=== PATIENT | male | born 1950 ===

== ENCOUNTER 2020-12-08 04:06 | Inpatient (IN) | payer OTHER ==
[~2020-12-08] VITALS: Ht 190.5 cm; Wt 119.1 kg
[2020-12-08] MEDS ORDERED: IOHEXOL 350 MG/ML 100ML IJ ONE (04:47)
[2020-12-08 05:13] LABS: Basophils # (auto) 0.1 10 ^3/uL (0-0.2); Eosinophils # (auto) 0.3 10 ^3/uL (0-0.8); Eosinophils % (auto) 2.8 % (0.0-7.0); Hematocrit 41.9 % (41.0-53.0); Lymphocytes # (auto) 2.6 10 ^3/uL (0.4-5.4); Lymphocytes % (auto) 23.5 % (10.0-50.0); Mean Corpuscular Hemoglobin 32.5 pg (28.0-32.0); Mean Corpuscular Hgb Conc. 33.5 g/dL (32.0-36.0); Mean Corpuscular Volume 97.1 fL (80.0-100.0); Monocytes # (auto) 0.8 10 ^3/uL (0-1.3); Neutrophils # (auto) 7.3 10 ^3/uL (1.6-8.6); Neutrophils % (auto) 65.7 % (37.0-80.0); Red Blood Cells 4.31 10^6/uL (4.5-5.90); Red Cell Distribution Width 13.4 % (11.8-14.3); White Blood Cell 11.1 10^3/uL (4.4-10.8)
[2020-12-08] MEDS ORDERED: HYDROmorphone HCL 2 MG/ML VL IV ONE (05:15)
[2020-12-08 05:38] LABS: Albumin 3.1 g/dL (3.4-5.0); Anion Gap 4 (5-15); Blood Urea Nitrogen 16 mg/dL (7-18); Calcium 8.2 mg/dL (8.5-10.1); Carbon Dioxide 27 mmol/L (21-32); Chloride 112 mmol/L (98-107); Glucose 124 mg/dL (74-106); Potassium 3.9 mmol/L (3.5-5.1); Sodium 143 mmol/L (136-145)
[2020-12-08 05:49] LABS: Alanine Aminotransferase 21 U/L (16-61); Alkaline Phosphatase 76 U/L (45-117); Aspartate Aminotransferase 16 U/L (15-37); BUN/Creatinine Ratio 22.2; Bilirubin, Total 0.5 mg/dL (0.2-1.0); GFR African American 138 mL/min; GFR Non-African American 114 mL/min; Total Protein 6.9 g/dL (6.4-8.2)
[2020-12-08] MEDS ORDERED: NITROGLYCERIN 0.4 MG SL TAB SL PRN ×2 (09:15→10:00)
[2020-12-08] MEDS ORDERED: MORPHINE SULFATE INJECTION 2 MG/ML SYRG IV PRN ×4 (09:15→11:45)
[2020-12-08] MEDS ORDERED: FUROSEMIDE 40 MG/4 ML VIAL IV ONE (09:30)
[2020-12-08] MEDS ORDERED: ENOXAPARIN SOD 40 MG/0.4 ML SYRINGE SC ONE (09:30)
[2020-12-08] MEDS ORDERED: ONDANSETRON HCL 4 MG/2 ML VIAL IV PRN (10:00)
[2020-12-08] MEDS ORDERED: ALUM & MAG HYDROX-SIMETH LIQ(MAALOX) 30 ML PO PRN (10:00)
[2020-12-08] MEDS ORDERED: LORazepam 0.5 MG TAB PO PRN (10:00)
[2020-12-08] MEDS ORDERED: ASPirin 81 mg TAB PO SCH (10:00)
[2020-12-08] MEDS ORDERED: AMIODARONE HCL 200 MG TAB PO ONE (10:00)
[2020-12-08] MEDS ORDERED: ASPirin 81 mg TAB PO ONE (10:00)
[2020-12-08] MEDS ORDERED: LISINOPRIL 20 MG TAB PO ONE (10:00)
[2020-12-08] MEDS ORDERED: ATORVASTATIN 20 MG TAB PO ONE (10:00)
[2020-12-08] MEDS ORDERED: DOCUSATE SOD 100 MG CAP PO PRN (10:00)
[2020-12-08 10:28] LABS: Cholesterol 143 mg/dL (< 200); HDL Cholesterol 88 mg/dL (40-59); LDL Cholesterol 46 mg/dL (< 100); Triglycerides 38 mg/dL (< 150)
[2020-12-08] MEDS ORDERED: cefTRIAXone 1GM/50ML D5W 50 ML IV ONE (11:00)
[2020-12-08] MEDS: AZITHROMYCIN 500MG/ 250ML 250 ML IV SCH (11:26)
[2020-12-08] MEDS: SODIUM CHLORIDE 0.9% 1,000 ML IV SCH (11:26)
[2020-12-08] MEDS ORDERED: AZITHROMYCIN 500MG/ 250ML 250 ML IV ONE (11:30)
[2020-12-08] MEDS: FAMOTIDINE (10MG/ML) 2ML VL IV SCH ×2 (11:59→21:54)
[2020-12-08] MEDS: HYDROcodone-ACET 5/325MG TAB PO PRN ×2 (13:22→18:16)
[2020-12-08] MEDS: FUROSEMIDE 20 MG/2 ML VIAL IV SCH (17:56)
[2020-12-08 22:00] VITALS: BP 124/67
[2020-12-09] MEDS: SODIUM CHLORIDE 0.9% 1,000 ML IV SCH ×2 (04:20→23:41)
[2020-12-09 05:00] VITALS: BP 130/70
[2020-12-09] MEDS: FUROSEMIDE 20 MG/2 ML VIAL IV SCH ×2 (06:15→18:40)
[2020-12-09 09:00] VITALS: BP 114/77
[2020-12-09] MEDS: cefTRIAXone 1GM/50ML D5W 50 ML IV SCH (10:13)
[2020-12-09] MEDS: AMIODARONE HCL 200 MG TAB PO SCH (10:14)
[2020-12-09] MEDS: FAMOTIDINE (10MG/ML) 2ML VL IV SCH ×2 (10:14→21:40)
[2020-12-09] MEDS: LISINOPRIL 20 MG TAB PO SCH (10:14)
[2020-12-09] MEDS: ENOXAPARIN SOD 40 MG/0.4 ML SYRINGE SC SCH (10:15)
[2020-12-09] MEDS: AZITHROMYCIN 500MG/ 250ML 250 ML IV SCH (11:07)
[2020-12-09 12:14] LABS: Urine Bacteria NONE SEEN /hpf (None Seen); Urine Blood Negative /uL (Negative); Urine Specific Gravity 1.009 (1.001-1.035); Urine WBC 1 /hpf (0 - 3)
[2020-12-09 12:39] LABS: Amphetamine Screen, Urine NEGATIVE (NEGATIVE); Barbiturate Scree,Urine NEGATIVE (NEGATIVE); Benzodiazephine Screen, Urine NEGATIVE (NEGATIVE); Cannabinoid Screen, Urine NEGATIVE (NEGATIVE); Cocaine Screen, Urine NEGATIVE (NEGATIVE); Opiate Scree,Urine NEGATIVE (NEGATIVE); Phencyclidine Screen, Urine NEGATIVE (NEGATIVE)
[2020-12-09 12:41] LABS: Alcohol, Urine < 3.0 mg/dL (0-10)
[2020-12-09 13:00] VITALS: BP 119/63
[2020-12-09 17:00] VITALS: BP 131/85
[2020-12-09 22:00] VITALS: BP 111/50
[2020-12-09] MEDS ORDERED: ATORVASTATIN 20 MG TAB PO SCH (22:00)
[2020-12-10 05:00] VITALS: BP 104/55
[2020-12-10] MEDS: FUROSEMIDE 20 MG/2 ML VIAL IV SCH (06:24)
[2020-12-10 09:00] VITALS: BP 122/63
[2020-12-10] MEDS: AMIODARONE HCL 200 MG TAB PO SCH (09:37)
[2020-12-10] MEDS: cefTRIAXone 1GM/50ML D5W 50 ML IV SCH (09:37)
[2020-12-10] MEDS: LISINOPRIL 20 MG TAB PO SCH (09:37)
[2020-12-10] MEDS: FAMOTIDINE (10MG/ML) 2ML VL IV SCH (09:37)
[2020-12-10] MEDS: ENOXAPARIN SOD 40 MG/0.4 ML SYRINGE SC SCH (09:37)
[2020-12-10] MEDS: AZITHROMYCIN 500MG/ 250ML 250 ML IV SCH (10:17)
[2020-12-10] MEDS: SODIUM CHLORIDE 0.9% 1,000 ML IV SCH (12:00)
[2020-12-10 13:14] VITALS: BP 117/68
== END 2020-12-10 13:32 | disposition home or self-care (01) | DRG 189 ==
LOC: ER 04:06 → TELE 09:06 → TELE-EAST 14:45
PROVIDERS: ADMIT Hospitalist; ATTEND Hospitalist
DX: J96.01 Acute respiratory failure with hypoxia (principal); I24.9 Acute ischemic heart disease, unspecified; E44.1 Mild protein-calorie malnutrition; J45.901 Unspecified asthma with (acute) exacerbation; J98.11 Atelectasis; I50.82 Biventricular heart failure; I48.0 Paroxysmal atrial fibrillation; E66.01 Morbid (severe) obesity due to excess calories; Z68.33 Body mass index [BMI] 33.0-33.9, adult; E78.5 Hyperlipidemia, unspecified; F17.210 Nicotine dependence, cigarettes, uncomplicated; I45.10 Unspecified right bundle-branch block; I44.0 Atrioventricular block, first degree; R07.89 Other chest pain; I11.0 Hypertensive heart disease with heart failure; M19.90 Unspecified osteoarthritis, unspecified site; Z20.822 Contact with and (suspected) exposure to COVID-19; Z82.49 Family history of ischemic heart disease and other diseases of the circulatory system; Z83.3 Family history of diabetes mellitus; Z98.84 Bariatric surgery status
CPT/HCPCS: 36415; 71045; 71275; 80053; 80061; 80307; 81001; 82088; 83036; 83880; 84244; 84484; 85025; 87040; 87086; 87426; 93005; 93306; 93970; 96365; 96366; 96368; 96372; 96375; G0378; J0696; J3490

== ENCOUNTER 2022-04-24 10:13 | Emergency (ER) | payer OTHER ==
[~2022-04-24] VITALS: Ht 190.5 cm; Wt 120.0 kg
[2022-04-24 10:55] LABS: Basophils # (auto) 0.1 10 ^3/uL (0-0.2); Basophils % (auto) 0.7 % (0.0-2.0); Eosinophils # (auto) 0.1 10 ^3/uL (0-0.8); Eosinophils % (auto) 1.6 % (0.0-7.0); Hematocrit 34.5 % (41.0-53.0); Hemoglobin 11.5 g/dL (13.5-17.5); Lymphocytes # (auto) 1.3 10 ^3/uL (0.4-5.4); Lymphocytes % (auto) 18.7 % (10.0-50.0); Mean Corpuscular Hemoglobin 31.9 pg (28.0-32.0); Mean Corpuscular Hgb Conc. 33.4 g/dL (32.0-36.0); Mean Corpuscular Volume 95.7 fL (80.0-100.0); Monocytes # (auto) 0.9 10 ^3/uL (0-1.3); Monocytes % (auto) 13.1 % (0.0-12.0); Neutrophils # (auto) 4.7 10 ^3/uL (1.6-8.6); Neutrophils % (auto) 65.9 % (37.0-80.0); Nucleated Red Blood Cells % 0.1 %; Red Cell Distribution Width 14.3 % (11.8-14.3); White Blood Cell 7.1 10^3/uL (4.4-10.8)
[2022-04-24] MEDS ORDERED: MORPHINE SULFATE 4 MG/ML SYR/VIAL IV ONE (11:45)
[2022-04-24] MEDS ORDERED: ONDANSETRON HCL 4 MG/2 ML VIAL IV ONE (11:45)
[2022-04-24 11:52] LABS: Albumin 2.6 g/dL (3.4-5.0); BUN/Creatinine Ratio 31.5
[2022-04-24 11:55] LABS: Bilirubin, Total 1.2 mg/dL (0.2-1.0)
[2022-04-24 13:49] LABS: Urine Bacteria NONE SEEN /hpf (None Seen); Urine Blood 1+ /uL (Negative); Urine Hyaline Cast FEW /lpf (0 - 2); Urine Specific Gravity 1.019 (1.001-1.035); Urine WBC 2 /hpf (0 - 3)
[2022-04-24 14:00] VITALS: BP 128/74
[2022-04-24] MEDS ORDERED: IOHEXOL 350 MG/ML 100ML IJ ONE (14:09)
[2022-04-24] MEDS ORDERED: BACDST PO (15:16)
== END 2022-04-24 15:40 | disposition home or self-care (01) ==
LOC: EDBD 10:13 → ER 10:13
DX: R33.9 Retention of urine, unspecified (principal); N39.0 Urinary tract infection, site not specified; I10 Essential (primary) hypertension; I48.91 Unspecified atrial fibrillation; F17.210 Nicotine dependence, cigarettes, uncomplicated; Z79.899 Other long term (current) drug therapy; Z88.2 Allergy status to sulfonamides; Z88.8 Allergy status to other drugs, medicaments and biological substances
CPT/HCPCS: 36415; 51702; 71275; 74176; 80053; 81001; 84484; 85025; 85379; 93005; 93970; 96374; 96375; 99285; J2270; J2405; Q9967